=== PATIENT | female | born 1980 ===

== ENCOUNTER 2017-09-01 12:56 | Inpatient (IN) | payer BC ==
[~2017-09-01] VITALS: Ht 154.9 cm; Wt 75.5 kg
[~2017-09-01 12:56] MED LIST: CLC100 PO; FRRS300 PO; MTR600X PO; PRENATA2 OR
[2017-09-01] MEDS ORDERED: PROM25TA9 PO (14:01)
[2017-09-01] MEDS ORDERED: DINOPROSTONE 10 MG INSERT PV ONE (14:30)
[2017-09-01 14:36] LABS: HEMATOCRIT 33.5 % (37-47); MEAN CELL VOLUME 95.7 fL (80-100); MEAN CORPUSCULAR HEMOGLOBIN 33.4 pg (25-34); MEAN CORPUSCULAR HGB CONC 34.9 g/dl (32-36); MEAN PLATELET VOLUME 10.6 fL (7.4-10.4); PLATELET COUNT 136 K/uL (130-400)
[2017-09-01 14:54] LABS: ALT/SGPT 13 U/L (12-78); AST/SGOT 11 U/L (15-37); BLOOD UREA NITROGEN 7 mg/dl (7-18); BUN/CREATININE RATIO 11.1 (10-20); CALCIUM 9.1 mg/dl (8.5-10.1); CARBON DIOXIDE 27 mmol/L (21-32); CHLORIDE 105 mmol/L (98-107); CREATININE 0.63 mg/dl (0.60-1.20); GLUCOSE 103 mg/dl (70-99); POTASSIUM 3.2 mmol/L (3.5-5.1); SODIUM 135 mmol/L (136-145)
[2017-09-01 14:57] LABS: ALB/GLOB RATIO 0.8 (0.9-2); ALKALINE PHOSPHATASE 130 U/L (45-117)
[2017-09-01 15:00] VITALS: Ht 154.9 cm; Wt 75.5 kg
--- NOTE | 2017-09-01 15:50 | HISTORY & PHYSICAL EXAMINATION ---
DATE OF ADMISSION: 09/01/2017 HISTORY OF PRESENT ILLNESS: The patient is a 36-year-old G4, P3, due date 08/21/2017 making her 41 weeks and 4 days, who was seen in the office today for care. She was found to have elevated blood pressures and headaches as well as 2+ protein. She was sent to labor and delivery for labor augmentation. On arrival to labor and delivery, she had no shortness of breath, no chills, and no fever. No right upper quadrant pain. COURSE: Unremarkable. LABORATORIES: Blood type O positive, GBS negative. Rubella immune. RPR nonreactive. PAST MEDICAL HISTORY: The patient has a history of depression, history of migraines with aura and nephrolithiasis. PAST SURGICAL HISTORY: The patient has a history of knee surgery and a mole removal. SOCIAL HISTORY: The patient denies tobacco, drug or alcohol use. FAMILY HISTORY: Noncontributory. OBSTETRICAL AND GYNECOLOGICAL HISTORY: The patient has had 3 vaginal deliveries. PHYSICAL EXAMINATION: GENERAL: Well-developed and well-nourished white female in no acute distress. HEART: S1 and S2, regular rhythm and rate. LUNGS: Clear to auscultation bilaterally. ABDOMEN: Gravid. Ultrasound done in the office today shows cephalic presentation. PELVIC: 2-3, 50%, and -2. EXTREMITIES: No cyanosis, clubbing or edema. ASSESSMENT AND PLAN: A 36-year-old G4, P3 at 41 and 4 weeks. Elevated blood pressures in the office. The patient is being admitted and PIH labs are ordered. The patient was offered Cytotec to start with induction. The patient, however, tells me she prefers Cervidil. So, we will start with Cervidil with induction.
[2017-09-02] MEDS ORDERED: LACTATED RINGER'S 1000ML 500 ML IV PRN ×2 (03:07→09:26)
[2017-09-02] MEDS: LACTATED RINGER'S 1000ML 1,000 ML IV SCH ×2 (03:13→13:39)
[2017-09-02] MEDS ORDERED: OXYTOCIN 30 UNITS/500ML NSS IV PRN ×2 (03:15→17:30)
[2017-09-02] MEDS ORDERED: TERBUTALINE SULFATE 1 MG/ML VIAL SQ STA (03:15)
[2017-09-02 05:46] LABS: HEMATOCRIT 31.3 % (37-47); MEAN CORPUSCULAR HEMOGLOBIN 33.1 pg (25-34); MEAN CORPUSCULAR HGB CONC 34.5 g/dl (32-36); MEAN PLATELET VOLUME 10.8 fL (7.4-10.4); PLATELET COUNT 114 K/uL (130-400); RED BLOOD COUNT 3.26 M/uL (4.2-5.4); WHITE BLOOD COUNT 12.21 K/uL (4.8-10.8)
[2017-09-02 06:28] LABS: BUN/CREATININE RATIO 9.9 (10-20); CALCIUM 8.5 mg/dl (8.5-10.1); CREATININE 0.61 mg/dl (0.60-1.20); POTASSIUM 3.3 mmol/L (3.5-5.1)
[2017-09-02 06:31] LABS: ALB/GLOB RATIO 0.8 (0.9-2)
[2017-09-02] MEDS ORDERED: EpHEDrine SULFATE INJ 50 MG/ML AMP ONE (08:43)
[2017-09-02] MEDS ORDERED: BUPIVACAINE 0.25% 30 ML VIAL ONE (08:43)
[2017-09-02] MEDS ORDERED: FENTANYL 2MCG/ML ROPIV 1.25MG/ML 100ML BAG EPI ONE (08:43)
[2017-09-02] MEDS ORDERED: FENTANYL CITRATE INJ 50 MCG/1 ML 2 ML VIAL ONE (08:44)
[2017-09-02] MEDS ORDERED: NALOXONE HCL INJ 1 MG in SODIUM CHLORIDE 0.9% 1000ML 1,000 ML IV PRN (09:26)
[2017-09-02] MEDS ORDERED: NALOXONE HCL INJ 0.4 MG/1 ML VIAL/CARP IV PRN (09:30)
[2017-09-02] MEDS ORDERED: DiphenhydrAMINE HCL 50 MG/ML VIAL IV PRN (09:30)
[2017-09-02] MEDS ORDERED: EpHEDrine SULFATE INJ 50 MG/ML AMP IV PRN (09:30)
[2017-09-02] MEDS ORDERED: NALBUPHINE HCL INJ 10 MG/ML AMP IV PRN (09:30)
[2017-09-02] MEDS ORDERED: FENTANYL 2MCG/ML ROPIV 1.25MG/ML 100ML BAG EPI PRN (09:30)
[2017-09-02] MEDS ORDERED: ONDANSETRON INJ 2 MG/ML 2 ML VIAL IV PRN (11:00)
[2017-09-02] MEDS ORDERED: ONDANSETRON INJ 2 MG/ML 2 ML VIAL ONE (11:07)
[2017-09-02] MEDS ORDERED: METHYLERGONOVINE MALEATE 0.2 MG/ML AMP ONE (17:16)
[2017-09-02] MEDS ORDERED: BENZOCAINE 20% AER SPR 82.5 GM CAN EXT PRN (17:30)
[2017-09-02] MEDS ORDERED: HYDROCORTISONE ACETATE 25 MG SUPP PR PRN (17:30)
[2017-09-02] MEDS ORDERED: OXYCODONE/ACETAMINOPHEN 5-325 TAB PO PRN (17:30)
[2017-09-02] MEDS ORDERED: METHYLERGONOVINE MALEATE 0.2 MG/ML AMP IM ONE (17:30)
[2017-09-02] MEDS ORDERED: DIPHTHERIA/TETANUS/PERTUSSIS 0.5 ML SYR/VIAL IM. ONE (17:30)
[2017-09-02] MEDS ORDERED: SUPERCREAM 0.870 % 15GM JAR EXT PRN (17:30)
[2017-09-02] MEDS ORDERED: LANOLIN OINT EXT PRN ×2 (17:30)
--- NOTE | 2017-09-02 19:34 | DELIVERY SUMMARY ---
DATE OF OPERATION: 09/02/2017 TIME OF DELIVERY: 171. DELIVERY OF PLACENTA: 1720. DELIVERY NOTE: The patient is a 36-year-old 4, para 3 at 41 weeks and 5 days gestation, who was admitted to labor and delivery on the afternoon of 09/01/2017 with elevated blood pressures and was admitted for induction. She received Cervidil on the afternoon of admission. Oxytocin was started around 3 a.m. on 09/02/2017. She received an epidural for anesthesia. Artificial rupture of membranes was performed at 10:52 a.m. with clear amniotic fluid noted. She reached complete dilation at 1710 with the urge to push. The patient pushed to delivery. At 1716, she delivered a viable male infant in the left occiput anterior position to an intact perineum. Nuchal cord x2 was reduced at delivery. The baby was delivered and placed on the patient's abdomen. Delayed cord clamping was performed. After the cord was completed pulsating, the cord was clamped x2 and cut. Apgars were 8 at 1 minute, 9 at 5 minutes. Please see nursing notes for further baby assessment. Cord blood was then obtained. An intact placenta with 3-vessel cord was delivered. Oxytocin infusion was begun. The lower uterine segment and vagina was cleared of any blood clots and debris. Due to excessive bleeding, she was given Methergine 0.2 mg IM. Uterine massage was performed with excellent uterine tone. Hemostasis was achieved. Exploration of the perineum noted no lacerations. Estimated blood loss was 400 mL. All sponge and instrument counts were found to be correct x2. Both patient and baby tolerated the delivery well and were in recovery with stable vital signs. I attest to the content of the Intraoperative Record and any orders documented therein. Any exception s are noted below.
[2017-09-02 20:00] VITALS: BP 151/91; PULSE 80; TEMP 36.5
[2017-09-02] MEDS: DOCUSATE SODIUM 100 MG CAP PO SCH (20:00)
--- NOTE | 2017-09-02 20:42 | Anesthesia Procedure Note ---
Anesthesia Epidural Removal Nt Date & Time Sep 02, 2017 at 20:42 Vital Signs Pain Intensity: 3.0 Vital Signs Past 12 Hours Date Time Temp Pulse Resp B/P (MAP) Pulse Ox O2 Delivery O2 Flow Rate FiO2 09/02/17 20:00 Room Air 09/02/17 20:00 36.5 80 18 151/91 (111) Room Air Notes Mental Status: alert / awake / arousable, participated in evaluation Nausea / Vomiting: adequately controlled Pain: adequately controlled Airway Patency, RR, SpO2: stable & adequate BP & HR: stable & adequate Hydration State: stable & adequate Neuraxial Anesthesia: was administered Anesthetic Complications: no major complications apparent, pt satisfied with anesthetic care Epidural: removed without complications, with tip intact
[2017-09-02 21:30] VITALS: BP 138/80
[2017-09-02] MEDS: ACETAMINOPHEN 325 MG TAB PO PRN (21:36)
[2017-09-02 23:35] VITALS: BP 138/84; PULSE 82; TEMP 36.7
[2017-09-03 04:15] VITALS: BP 138/90; PULSE 80; TEMP 36.3
[2017-09-03] MEDS: IBUPROFEN 600 MG TAB PO PRN ×3 (04:38→14:50)
[2017-09-03 06:43] LABS: HEMATOCRIT 29.7 % (37-47); MEAN CELL VOLUME 95.5 fL (80-100); MEAN CORPUSCULAR HEMOGLOBIN 33.1 pg (25-34); MEAN PLATELET VOLUME 10.7 fL (7.4-10.4); PLATELET COUNT 108 K/uL (130-400); RED BLOOD COUNT 3.11 M/uL (4.2-5.4); WHITE BLOOD COUNT 14.56 K/uL (4.8-10.8)
[2017-09-03 07:00] LABS: MEAN CORPUSCULAR HGB CONC 34.7 g/dl (32-36)
[2017-09-03 07:12] LABS: ALB/GLOB RATIO 0.8 (0.9-2); BUN/CREATININE RATIO 7.2 (10-20); CALCIUM 8.4 mg/dl (8.5-10.1); CREATININE 0.57 mg/dl (0.60-1.20); POTASSIUM 3.5 mmol/L (3.5-5.1)
[2017-09-03 07:30] VITALS: BP 124/87; PULSE 80; TEMP 36.6
--- NOTE | 2017-09-03 07:30 | OB/GYN Progress Note ---
[employer] Progress Note Date of Service Sep 03, 2017. Subjective conversation w/ patient, physical exam Ambulation: ambulating normally Voiding: no voiding problems Passing Gas: Yes Diet Tolerance: Regular Diet Lochia: Moderate Review of Systems Constitutional: No fever, No chills, No sweats, No weight loss, No weakness, No fatigue, No problem reported Respiratory: No cough, No sputum, No wheezing, No shortness of breath, No dyspnea on exertion, No dyspnea at rest, No hemoptysis, No problem reported Cardiac: No chest pain, No orthopnea, No PND, No edema, No claudication, No palpitations, No problem reported Breast: No see HPI, No breast lump, No change in shape, No nipple discharge, No breast pain, No problem reported Abdomen: No pain, No nausea, No vomiting, No diarrhea, No constipation, No GI bleeding, No problem reported Female : No see HPI, No dysuria, No urinary frequency, No hematuria, No incontinence, No abnormal vaginal bleeding, No vaginal discharge, No problem reported Objective Vital Signs Date Time Temp Pulse Resp B/P (MAP) Pulse Ox O2 Delivery O2 Flow Rate FiO2 09/03/17 04:15 36.3 80 20 138/90 (106) Room Air 09/02/17 23:35 36.7 82 18 138/84 (102) Room Air 09/02/17 23:35 Room Air 09/02/17 21:30 138/80 (99) 09/02/17 20:00 Room Air 09/02/17 20:00 36.5 80 18 151/91 (111) Room Air Physical Exam General Appearance: WELL-APPEARING, WD/WN, NO APPARENT DISTRESS Respiratory/Chest: chest non-tender, lungs clear, normal breath sounds, no respiratory distress, no accessory muscle use Cardiovascular: regular rate, rhythm, no edema, no gallop, no JVD, no murmur Abdomen: normal bowel sounds, non tender, soft, no organomegaly, no pulsatile mass Fundus: Firm Extremities: normal range of motion, non-tender, normal inspection, no pedal edema, no calf tenderness Laboratory Results Last 24 Hours Test 09/03/17 06:30 White Blood Count 14.56 K/uL Red Blood Count 3.11 M/uL Hemoglobin 10.3 g/dL Hematocrit 29.7 % Mean Corpuscular Volume 95.5 fL Mean Corpuscular Hemoglobin 33.1 pg Mean Corpuscular Hemoglobin Concent 34.7 g/dl RDW Standard Deviation 54.5 fL RDW Coefficient of Variation 15.8 % Platelet Count 108 K/uL Mean Platelet Volume 10.7 fL Sodium Level 139 mmol/L Potassium Level 3.5 mmol/L Chloride Level 106 mmol/L Carbon Dioxide Level 22 mmol/L Anion Gap 11.0 mmol/L Blood Urea Nitrogen 4 mg/dl Creatinine 0.57 mg/dl Est Creatinine Clear Calc Drug Dose 128.0 ml/min Estimated GFR () 139.2 Estimated GFR (Non- 120.1 BUN/Creatinine Ratio 7.2 Random Glucose 89 mg/dl Calcium Level 8.4 mg/dl Total Bilirubin 0.4 mg/dl Aspartate Amino Transf (AST/SGOT) 13 U/L Alanine Aminotransferase (ALT/SGPT) 10 U/L Alkaline Phosphatase 96 U/L Total Protein 5.2 gm/dl Albumin 2.4 gm/dl Globulin 2.8 gm/dl Albumin/Globulin Ratio 0.8 Assessment and Plan Day Number: 1 Continue Routine Care: VD day #1 Pt doing well PIH lbs nml. except Plt Mildly elevated BP's- None in the severe range Pt has hx of HTN. was on Labetalol prior to this . 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 We have discussed the significance of f/u and treatment. Pt will f/u with PCP pt wishes to be discharged Plan repeat PLT and disch later
[2017-09-03] MEDS: DOCUSATE SODIUM 100 MG CAP PO SCH (07:51)
[2017-09-03] MEDS: ACETAMINOPHEN 325 MG TAB PO PRN (07:54)
[2017-09-03] MEDS ORDERED: PRENATAL VITAMIN TAB PO SCH (08:00)
[2017-09-03] MEDS ORDERED: FERROUS SULFATE 325 MG TAB PO SCH (08:00)
[2017-09-03] MEDS ORDERED: FRRS300 PO (08:50)
[2017-09-03] MEDS ORDERED: CLC100 PO (08:50)
[2017-09-03] MEDS ORDERED: MTR600X PO (08:50)
--- NOTE | 2017-09-03 08:50 | Discharge Instructions ---
Discharge Instructions Date of Service Sep 03, 2017. Admission Reason for Admission: R/O Labor Discharge Discharge Diagnosis / Problem: Discharge Goals Goal(s): Routine recovery after delivery Activity Recommendations Activity Limitations: as noted below ACTIVITY RECOMMENDATIONS: * Gradual return to full activity over the next 2-3 weeks. * No lifting - nothing heavier than baby over the next 2-3 weeks. * Do not engage in vigorous exercise, sexual activity or sports until cleared by your physician. * Do not drive or operate any motorized equipment until cleared by your physician. * You may shower/bathe daily. BREAST CARE: If you are not breast feeding: * Wear a supportive bra 24 hours a day for one to two weeks. * Avoid stimulating your breasts and nipples as much as possible during the first few weeks after delivery. * When taking a shower, have the warm water hit your back, not breasts. * When your breasts feel full, apply ice packs. Usually three to four times a day helps ease the discomfort. * Take a mild pain medication (Tylenol/Motrin) when you are uncomfortable. If breast feeding: * Use breast milk to lubricate nipples. Lansinoh cream may be used for sore nipples. You do not need to remove cream prior to breast feeding. If using a different brand of cream, check the label for directions regarding removal of cream prior to nursing. * Wear a supportive bra. * If having problems with breasts or breast feeding, call a alliances consultant or your health care provider. EPISIOTOMY CARE: After delivery, if you have an episiotomy (stitches), the following steps will ease discomfort and aid healing. * For the first 24 hours after delivery, place ice packs next to your episiotomy to help reduce swelling. * After the first 24 hour-period, sitz baths, either portable or in the tub, are suggested. A shower with a shower arm sprayed over the episiotomy may be comforting. * Razia care should be done after each voiding and bowel movement. Squirt warm water from a plastic bottle over the perineum (region of the body between the anus and urinary opening) and pat dry. * Use Dermoplast to ease discomfort. Shake container. Sprague directly over the episiotomy. * Place a Tucks on a clean sanitary pad next to your episiotomy. OVER THE COUNTER MEDICATION: * For discomfort or pain, you may use Acetaminophen (Tylenol), Ibuprofen (Advil ), or Naproxen (Aleve) following the package directions. * For constipation you may use Colace following the package directions. SPECIAL CARE INSTRUCTIONS: When you are discharged from the hospital, it is important for you to follow the instructions listed below: * During the first week at home, you should be able to care for yourself and your baby. In addition, the usual light household activities are encouraged. * Limit your activities to the way you feel. Do not try to clean the house or move furniture. Be sensible. * If you actively engage in sports and have done so up until the time of your delivery, you may resume these activities as soon as you feel able. This may take up to one month or even longer. Use good judgment. * Continue to take your vitamins for at least six weeks after the of your baby. * Your diet need not be limited unless you were on a special diet before your delivery. Breast-feeding mothers need around 2500 calories per day and at least 64-80 ounces of fluid per day (8 to 10 glasses). * You should eat foods from the four major food groups. Crash diets or fad diets are to be avoided. Eating lean meats, fresh fruits and vegetables, low-fat dairy products, high fiber foods and a regular exercise program, will help you get back to your pre- weight without putting your health at risk. * Constipation is sometimes a problem after delivery. Take a mild laxative as needed. If breast feeding, Milk of Magnesia is acceptable to use. You may use a suppository or Fleets enema if no episiotomy. * A daily shower or tub bath is suggested. Be sure to thoroughly and gently dry the perineum. * A bloody vaginal discharge will usually continue until around four weeks post . A small amount of bleeding may continue for as long as six weeks. Vaginal discharge changes from the bright red bleeding after delivery to pink then brownish and finally yellowish-pink before becoming white and disappearing. * Bleeding may increase with activity. Your first period may come in 4-8 weeks. If you are breast feeding, your period may be delayed even longer. * [place] (sex) can begin whenever both you and your partner feel comfortable and do not have any form of genital infection. It is recommended that you wait until after your return appointment and discuss with your physician. If you have questions, please talk to your health care practitioner. A condom should be used to prevent infection and . * Foreplay, gentle intercourse and lubrication is very important the first several times to prevent pain. A water-based lubricant such as K-Y jelly or Astroglide may be used. * Tampons may be used six weeks after delivery. * Douching should be avoided for 6 weeks after delivery. * If you have RH negative blood and your baby is RH positive, you will receive RHOGAM by injection prior to discharge. The nurse will give you a card to keep with you that has the date and place that you received RHOGAM after delivery. * During your care, you had a Rubella screen done to check for the presence of rubella antibodies in your blood. If your test was negative, you will receive a Rubella vaccine prior to discharge. This vaccine may cause a fever, soreness at the injection site and flu-like symptoms. If these symptoms persist, notify your health care practitioner. is not advised for three months after a Rubella vaccine. There is a higher chance of having a baby with defects if conceived within three months of getting the vaccine. * If you were discharged 24 hours from delivery or before 48 hours: Visiting nurses will come to your home 48 hours after discharge to assess you and your baby. The visiting nurse will meet with you while you are in the hospital to arrange a time and get directions to your home. * Verbalizes understanding of car seat law as reviewed with patient nursing. * Car Seat hand-out given and reviewed with patient by nursing. * Shaken baby information reviewed with patient by nursing. Call you doctor if: * Heavy bleeding (saturating several pads an hour) or passing clots the size of your fist. * A fever >101 degrees F (38.3 degrees C) on two occasions four hours apart and/or chills. * Unusual pain in the pelvic or vaginal areas. * "Baby Blues" lasting longer than two weeks. If you have any questions or concerns, call your health care practitioner at . FOLLOW-UP VISIT: * Please call the office at to schedule a 6 week examination. It is important you keep this appointment. * It is important for you to make arrangements for either yearly or twice yearly check-ups thereafter. . Current Hospital Diet Patient's current hospital diet: Regular OB Diet Discharge Diet Recommended Diet: Regular Diet Pending Studies Studies pending at discharge: no Medical Emergencies . Who to Call and When: Medical Emergencies: If at any time you feel your situation is an emergency, please call 911 immediately. . Non-Emergent Contact Non-Emergency issues call your: Specialist . . "Provider Documentation" section prepared by Remington Guy. . VTE Core Measure Inpt VTE Proph given/why not?: Treatment not indicated
[2017-09-03 11:35] VITALS: BP 154/101; PULSE 81; TEMP 36.7
[2017-09-03 14:14] LABS: HEMATOCRIT 31.4 % (37-47); MEAN CELL VOLUME 96.9 fL (80-100); MEAN CORPUSCULAR HGB CONC 34.1 g/dl (32-36); MEAN PLATELET VOLUME 10.9 fL (7.4-10.4); PLATELET COUNT 139 K/uL (130-400); RED BLOOD COUNT 3.24 M/uL (4.2-5.4); WHITE BLOOD COUNT 15.35 K/uL (4.8-10.8)
[2017-09-03 15:55] VITALS: BP 150/90; PULSE 67; TEMP 36.7; O2SAT 98
[2017-09-03 18:25] VITALS: BP_DIAS 90; PULSE 67; TEMP 36.7
[2017-09-03] MEDS ORDERED: BISACODYL 5 MG TABEC PO SCH (20:00)
[2017-09-04] MEDS ORDERED: BISACODYL 10 MG SUPP PR PRN (07:00)
== END 2017-09-03 18:35 | disposition home or self-care (01) | DRG 774 ==
LOC: C.OPB 12:56 → C.LD 12:56 → C.OPB 14:17 → C.LD 14:17 → C.OBG 09-02 22:15 → EDSTATUS 09-20 13:06
PROVIDERS: ADMIT Obstetrics & Gynecology; ATTEND Obstetrics & Gynecology
PROC: 10E0XZZ Delivery of Products of Conception, External Approach (ICD-10-PCS; principal; 2017-09-02)
PROC: 3E0P7GC Introduction of Other Therapeutic Substance into Female Reproductive, Via Natural or Artificial Opening (ICD-10-PCS; principal; 2017-09-02)
PROC: 10H07YZ Insertion of Other Device into Products of Conception, Via Natural or Artificial Opening (ICD-10-PCS; principal; 2017-09-02)
DX: O48.0 Post-term pregnancy (principal); O10.02 Pre-existing essential hypertension complicating childbirth; O72.1 Other immediate postpartum hemorrhage; O69.81X0 Labor and delivery complicated by cord around neck, without compression, not applicable or unspecified; Z37.0 Single live birth; Z3A.41 41 weeks gestation of pregnancy